=== PATIENT | male | born 1965 | race Caucasian/White ===

== ENCOUNTER 2018-12-15 12:19 | Emergency (ER) | payer BC ==
[~2018-12-15] VITALS: Ht 180.3 cm; Wt 92.0 kg
--- NOTE | 2018-12-15 14:12 | NUR ---
US tech at bedside for vascular study.
[2018-12-15 14:50] VITALS: BP 136/92
== END 2018-12-15 14:35 | disposition home or self-care (01) ==
LOC: ER 12:20
DX: R60.0 Localized edema (principal); M79.661 Pain in right lower leg; I87.2 Venous insufficiency (chronic) (peripheral)
CPT/HCPCS: 93971; 99284

== ENCOUNTER 2019-04-29 10:27 | Emergency (ER) | payer BC ==
[~2019-04-29] VITALS: Ht 177.8 cm; Wt 80.0 kg
[2019-04-29 10:45] VITALS: BP 155/100
[2019-04-29] MEDS ORDERED: ketorolac trometh inj. 60 MG/2 ML VIAL IM ONE (11:50)
[2019-04-29] MEDS ORDERED: METH4TAB3 PO (11:55)
== END 2019-04-29 12:19 | disposition home or self-care (01) ==
LOC: ER 10:28
DX: M79.604 Pain in right leg (principal); M54.41 Lumbago with sciatica, right side
CPT/HCPCS: 96372; 99283; J1885